=== PATIENT | male | born 1985 | race Caucasian/White ===

== ENCOUNTER 2019-04-27 10:34 | Emergency (ER) | payer MEDICAID, SELFPAY ==
[2019-04-27 10:47] VITALS: BP 146/94; PULSE 96; RESP 20; TEMP 36.7; O2SAT 97
--- NOTE | 2019-04-27 11:07 | W.ED.GENAD ---
Discharge Plan Disposition Patient Disposition: HOME Condition: Good Discharge Details Chief Complaint: Anxiety Clinical Impression: Anxiety Primary Care Provider: Bacilio Crowder ED Provider: Saray Lizarraga Home Meds and New Rx's Prescriptions: New lorazepam [Ativan] 0.5 mg tablet 0.5 mg PO TID PRN (Reason: anxiety) Qty: 4 RF: 0 Discharge Instructions Instructions: Anxiety (ED) Additional Instructions: Encourage water intake. Try to cut back on alcohol. Please continue contacting [facility] regarding your chronic alcohol use. You have an appointment set up for next week with primary care regarding your anxiety. They will also help refer you to psychiatry. Try anxiety breaking techniques as discussed by mental health. Deep breathing exercises. You may use the Ativan as prescribed. Do not take this more than prescribed. Keep this in a safe place. Do not drive will take this medication. Uses only during severe episodes of anxiety. If you develop thoughts of self self-harm, thoughts of harming others or other new/worsening symptoms please seek care urgently once again. Referrals: Bacilio Crowder [Primary Care Provider] - 05/06/19 8:30 am Discharge Data Discharge Date/Time-TO BE ENTERED AT DEPARTURE: 04/27/19 13:33 Medical Decision Making Patient 33-year-old male presents today with chief complaint of anxiety. He reports that he was diagnosed anxiety initially at 16 but is noted that this is exacerbated over the past 7 years. He states that he has become particularly worsened since moving to the area 2 months ago. He has not been any medications in the past 2 years. Anxiety. Has been moving around a number of times recently and has not established as of yet with a psychiatrist. Has an upcoming appointment with Dr. rankin but this is not until May to establish care. States that now he is having difficulty sleeping. States that this is affecting his ability to perform his activities of daily living and go to work. 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 He denies any thoughts of self-harm. No thoughts of harming others. No previous suicide attempts. Patient does appear visibly anxious. Plan to give 1 mg of p.o. Ativan and will consult with emergency services. Mental health is here to evaluate the patient. He reports that he saw the patient yesterday in the [facility] after acute alcohol intoxication. He also reports the patient may have missed his appointment this morning with his radiological defense officer which may also be exacerbating his anxiety. This is not information that was given for relief from the patient. He did not endorse any alcohol or drug use when I initially questioned the patient. Mental health evaluated patient feel that he is safe for discharge. They are trying to move up his time of them, will be more involved in his care. He also discussed possibly getting the patient to [facility] to help with his alcohol abuse. I did question the patient on the alcohol and he reports that he primarily drinks when he is feeling very anxious. Endorses presently 5 drinks daily. We did discuss that this may be exacerbating some of his symptoms and I encouraged alcohol cessation. We did discuss [facility] as he had with mental health. At this point, the patient does not feel that this is necessary and rather focus on the treatment of his anxiety. He feels much improved after the p.o. Ativan. Patient does seem reliable and is able to contract to not use Ativan when drinking. He does not drive typically. I will prescribe a short course of Ativan. Prescribed 0.5 mg Ativan tablets to be used 3 times daily as needed. Prescribed 4 tablets. Our pharmacist critical care was able to move up the patient's upcoming appointment with primary care next week to be able to discuss his anxiety further. He reports that he has been on medication for his anxiety historically and responded very well to this. He was given strict return precautions. Is not an imminent threat to himself or others. I feel that he is safe for discharge as well. Is already established with [facility] human services. All of his questions and concerns were addressed and he is in agreement with this plan. HPI General Mode of arrival: ambulatory. Date/Time Provider Initiated Documentation: 04/27/19 11:06. Limitations to Documentation: no limitations. Information obtained by: patient and RN notes reviewed. History of Present Illness 33 year old M presents to the emergency department with the chief complaint of anxiety, described as severe and similar to prior episodes, Patient started experiencing this year(s) (states worse in recent months) and it has been constant (worse when at work). No relieving factors improve symptom(s), Other factors that worsen symptoms (situational) . Patient notes denies confusion, chest pain, fever/chills, headaches and loss of appetite. Patient did receive the following treatments prior to arrival, none Related Data Home Medications Medication Instructions Recorded Confirmed lorazepam [Ativan] 0.5 mg PO TID PRN #4 tab 04/27/19 Previous Rx's Medication Instructions Recorded lorazepam [Ativan] 0.5 mg PO TID PRN #4 tab 04/27/19 General Stated Complaint: Anxiety ZAHIRA: 3 Review of Systems Constitutional Constitutional: Reports as per HPI, Denies chills, Denies fatigue, Denies fever(s), Denies headache(s) and Denies weakness Eyes Eyes: Denies change in vision ENT Ears, Nose, Mouth, and Throat: Denies headache(s) Cardiovascular Cardiovascular: Reports as per HPI, Denies chest pain, Denies lightheadedness, Denies dyspnea and Denies dyspnea on exertion Respiratory Respiratory: Reports as per HPI, Denies cough, Denies dyspnea and Denies dyspnea on exertion Gastrointestinal Gastrointestinal: Reports as per HPI, Denies abdominal pain, Denies change in bowel habits, Denies nausea and Denies vomiting Genitourinary Genitourinary: Denies system reviewed and no additional complaints, except as docu (denies any change in urinary habits) Musculoskeletal Musculoskeletal: Denies abnormal gait Integumentary/Breasts Skin/Breast: Reports as per HPI and Denies rash Neurologic Neurologic: Denies abnormal movements, Denies abnormal speech, Denies abnormal gait, Denies confusion, Denies headache(s), Denies paresthesias and Denies weakness Psychiatric Psychiatric: Reports abnormal sleep pattern (reports diminished sleep secondary to anxiety), Reports anxiety, Denies change in appetite, Denies confusion, Denies depression, Denies auditory hallucinations, Denies hopelessness, Reports panic attacks, Denies hallucinations, Denies homicidal ideation and Denies suicidal ideation Endocrine Endocrine: Denies fatigue Exam Const General: cooperative, healthy appearing, comfortable, no acute distress, well developed and well groomed Nutritional Appearance: average body habitus and well nourished Orientation: alert and awake Eyes General: appearance normal, both eyes and all related structures Resp Effort & Inspection: normal respiratory effort, able to speak in complete sentences and no respiratory distress Auscultation: clear to auscultation bilaterally, no rales, no rhonchi and no wheezes Cardio Rate: regular rate Rhythm: regular rhythm Heart Sounds: S1 normal and S2 normal Skin General skin exam: no rashes or lesions noted Trauma: no lacerations or abrasions Neuro General: alert and awake Cognition: normal cognition Speech: speech normal Gait: normal gait Course Vital Signs Vital signs: Vital Signs Temperature 36.7 C 04/27/19 10:47 Pulse 96 H 04/27/19 10:47 Respiratory Rate 20 04/27/19 10:47 Blood Pressure 146/94 H 04/27/19 10:47 Pulse Oximetry 97 04/27/19 10:47 Temperature 36.7 C 04/27/19 10:47 Temperature Source Skin 04/27/19 10:47 Pulse 96 H 04/27/19 10:47 Respiratory Rate 20 04/27/19 10:47 Blood Pressure 146/94 H 04/27/19 10:47 Blood Pressure Position Sitting 04/27/19 10:47 Pulse Oximetry 97 04/27/19 10:47 Oxygen Delivery Method Room Air 04/27/19 10:47 Oxygen Flow Rate 0 04/27/19 10:47 Pain Level 0 04/27/19 10:47
[2019-04-27] MEDS: LORazepam 1 MG TAB PO (11:13)
--- NOTE | 2019-04-27 11:14 | NUR.NOTE ---
patient medicated per MD order, NEVERAS paged and patient to [facility] Nursing Note:
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
--- NOTE | 2019-04-27 18:49 | PDOC.ERCMPRO ---
- If Service Date Differs Date of service: 04/27/19 Time of Service: 18:49 Care Management Progress Note CM responded to a request from ED provider to assist with obtaining a PCP appointment for a patient in need. Jamal is new to the area and was unable to obtain an appointment with Dr. Crowder until May. He is extremely anxious and needed to be seen sooner. CM contacted [facility] and was able to get an appointment for Jamal on 05/06/19 with Bing Bergeron. He will likely be referred to the psychiatrist in the practice as well as he has been unable to establish with one in this area yet.
== END 2019-04-27 13:33 | disposition home or self-care (01) ==
PROVIDERS: Emergency Provider Physician Assistant; PCP Family Medicine
DX: F41.9 Anxiety disorder, unspecified (principal)
CPT/HCPCS: 99284; 99283

== ENCOUNTER 2019-05-26 22:04 | Emergency (ER) | payer MEDICAID, SELFPAY ==
--- NOTE | 2019-05-26 22:10 | NUR.NOTE ---
Nursing Note: Went to triage patient, patient was not in waiting room. Per javascript front end developer he had dropped his baggage and gone out to smoke a cigarette after checking into the ER.
[2019-05-26 22:13] VITALS: BP 150/103; PULSE 104; RESP 20; TEMP 36.6; O2SAT 97
[2019-05-26 22:15] VITALS: BP 135/94
--- NOTE | 2019-05-26 22:31 | NUR.NOTE ---
Nursing Note: Patient agitated throwing his clothes while getting undressed and highly agitated that the doctor has not seen him yet when the PA attempted to go see him he excused her from the room to take a phone call.
--- NOTE | 2019-05-26 22:49 | NUR.NOTE ---
Addendum entered and electronically signed by Abida Craig 05/26/19 23:02: Patient redirected and informed that he needs to control his anger and behaviors. Saying bizarre statements, irritable. Stating that he is better off and that everyone is to me. Pt states he is going through a very difficult break up as well right now and that is why he is saying the things I am. Original Note: Nursing Note: Patient with provider at this time. Patient increasing in agitation
--- NOTE | 2019-05-26 22:49 | W.ED.GENAD ---
Discharge Plan Disposition Patient Disposition: OTHER Condition: Good Discharge Details Chief Complaint: PsychEval Clinical Impression: Adjustment disorder, Alcohol intoxication Primary Care Provider: Bacilio Crowder ED Provider: Rodrigo Thompson Home Meds and New Rx's Prescriptions: No Action No Known Home Meds RF: 0 Discharge Instructions Additional Instructions: [facility] referral will be made in morning and you should hear from them. Contact PCP for appointment to discuss antidepressants. Consider alcohol counseling. Return to ED for unsafe feelings, wanting to harm self, other concerns. Referrals: [facility] [Provider Group] Bacilio Crowder [Primary Care Provider] - Discharge Data Discharge Date/Time-TO BE ENTERED AT DEPARTURE: 05/27/19 01:45 Medical Decision Making <GERARD Mcgovern - Last Filed: 05/27/19 09:51> Patient is a 33 year old male, H signficiant for anxiety, with c/c of suicidal ideation. He was seen by myself on 04/27/19 for anxiety. He states that since that time his anxiety has continued to increase. Reports poor sleeping habits, reports that dreams keep him awake at night. States that he no longer has a place to stay, sounds very financially stressed. [facility]. Is frustrated that peopel addicted to drugs were able to get a place and he was not, this greatly seems to escalate him. He states that he has attempted suicide historically, reports in 2017 he tried to drink ETOH to the point of suicidal attempt. He continues to drink 6-8 beers daily, last drank a few hours ago. States that recently he has begun having increased anxiety and depression. Plans to jump off of a bridge into cold water. On exam, patient appears nontoxic. He is anxious. Physical exam normal. Patient has an anxious and angry affect. Will consult with mental health and request evaluation. Patient in paper clothes. Safety plan set up. Basic labs will be sent. Patient agrees to admission at this time, feels that I dont have another option at this point. CPSO has been ordered. As patient drinks regularly, placed patient on CIWA protocol. At the end of my shift, care was transitioned to Dr. Thompson with labs and Evaluation by mental health pending. patient remains voluntary. <Rodrigo Thompson MD - Last Filed: 05/27/19 01:34> Patient is medically cleared. His alcohol level was 148 at 23:00. LFT a little elevated likely due to daily drinking which he admits to. Patient has been seen and evaluated by mental health. He is not endorsing being suicidal currently. Apparently, more an issue with trying to have a place to sleep tonight. We will have him transported to [facility] by the [facility]. He will contact PCP for appointment to discuss antidepressants. [facility] referral will be placed in morning and they will reach out to him. He is future oriented talking about how he needs to work in the morning. He is discharged to the [facility]. Medical Records Medical records reviewed: Yes I reviewed the patient's medical records. Lab Data Lab results reviewed: Yes I reviewed the patient's lab results. HPI <GERARD Mcgovern - Last Filed: 05/27/19 09:51> General Mode of arrival: ambulatory. Date/Time Provider Initiated Documentation: 05/26/19 22:05. Limitations to Documentation: no limitations. Information obtained by: patient and RN notes reviewed. History of Present Illness 33 year old M presents to the emergency department with the chief complaint of suicidal ideation, described as severe and similar to prior episodes (has attempted suicide historically), Patient started experiencing this day(s) and it has been constant. No relieving factors improve symptom(s), No exacerbating factors reported . Patient notes no other symptoms.. Patient did receive the following treatments prior to arrival, none Related Data Home Medications Medication Instructions Recorded Confirmed Unknown [No Known Home Meds] 05/26/19 05/26/19 Allergies Allergy/AdvReac Type Severity Reaction Status Date / Time No Known Allergies Allergy Unverified 05/26/19 22:15 General Stated Complaint: PsychEval ZAHIRA: 2 Review of Systems <GERARD Mcgovern - Last Filed: 05/27/19 09:51> Constitutional Constitutional: Reports as per HPI, Denies chills, Denies fatigue, Denies fever(s), Denies headache(s) and Denies weakness Eyes Eyes: Denies change in vision ENT Ears, Nose, Mouth, and Throat: Denies headache(s) Cardiovascular Cardiovascular: Reports as per HPI, Denies chest pain, Denies lightheadedness, Denies dyspnea and Denies dyspnea on exertion Respiratory Respiratory: Reports as per HPI, Denies cough, Denies dyspnea and Denies dyspnea on exertion Gastrointestinal Gastrointestinal: Reports as per HPI, Denies abdominal pain, Denies change in bowel habits, Denies nausea and Denies vomiting Genitourinary Genitourinary: Denies system reviewed and no additional complaints, except as docu (denies any change in urinary habits) Musculoskeletal Musculoskeletal: Denies abnormal gait Integumentary/Breasts Skin/Breast: Reports as per HPI and Denies rash Neurologic Neurologic: Denies abnormal movements, Denies abnormal speech, Denies abnormal gait, Denies confusion, Denies headache(s), Denies paresthesias and Denies weakness Psychiatric Psychiatric: Reports as per HPI, Reports abnormal sleep pattern, Reports anxiety, Denies confusion, Denies depression, Denies auditory hallucinations, Reports hopelessness, Reports irritability, Reports mood swings, Reports panic attacks, Denies visual hallucinations, Denies hallucinations, Denies homicidal ideation and Reports suicidal ideation Endocrine Endocrine: Denies fatigue PFSH <GERARD Mcgovern - Last Filed: 05/27/19 09:51> Social History Smoking/Tobacco Use Status: Current every day Alcohol Intake: current Drug use: Rarely Substance use type: marijuana Do you feel safe at home: Yes Do you feel safe in your relationship?: Yes Exam <GERARD Mcgovern - Last Filed: 05/27/19 09:51> Const General: cooperative, healthy appearing, comfortable, no acute distress, well developed and well groomed Nutritional Appearance: average body habitus and well nourished Orientation: alert and awake Eyes General: appearance normal, both eyes and all related structures Resp Effort & Inspection: normal respiratory effort, able to speak in complete sentences and no respiratory distress Auscultation: clear to auscultation bilaterally, no rales, no rhonchi and no wheezes Cardio Rate: regular rate Rhythm: regular rhythm Heart Sounds: S1 normal and S2 normal Skin General skin exam: no rashes or lesions noted Trauma: no lacerations or abrasions Neuro General: alert and awake Cognition: normal cognition Speech: speech normal Gait: normal gait Psych Appearance: grossly normal and well kempt Mental Status: mental status grossly normal Speech and Movement: speech and movement normal Mood: congruent mood Affect: anxious affect Attitude: cooperative Thought Process: perseverating Thought Content: suicidality Insight: limited Judgment: limited Course <GERARD Mcgovern - Last Filed: 05/27/19 09:51> Vital Signs Vital signs: Vital Signs Temperature 36.6 C 05/26/19 22:13 Pulse 104 H 05/26/19 22:13 Respiratory Rate 20 05/26/19 22:13 Blood Pressure 150/103 H 05/26/19 22:13 Pulse Oximetry 97 05/26/19 22:13 Temperature 36.6 C 05/26/19 22:13 Temperature Source Temporal Artery Scan 05/26/19 22:13 Pulse 104 H 05/26/19 22:13 Respiratory Rate 05/26/19 22:13 Respiratory Effort Non-Labored 05/26/19 22:15 Blood Pressure 135/94 H 05/26/19 22:15 Blood Pressure Position Sitting 05/26/19 22:13 Pulse Oximetry 97 05/26/19 22:13 Oxygen Delivery Method Room Air 05/26/19 22:13 Oxygen Flow Rate 0 05/26/19 22:13 Pain Level 3 05/26/19 22:13 Sign Out <GERARD Mcgovern - Last Filed: 05/27/19 09:51> Sign Out Data: Sign Out Comment: Care transitioned to Dr. Thompson. Patient is actively suicidal with a plan. Mental health has been called in. CPSO ordered. [facility] protocol. Labs pending. Last updated by Saray Lizarraga PA at 05/26/19 23:43
--- NOTE | 2019-05-26 23:12 | PDOC.CMSAFED ---
- If Service Date Differs Date of service: 05/26/19 Time of Service: 23:12 Care Management Safety Plan Jamal is a 33 year old male who presents to the ED due to anxiety and suicidal ideation with a plan of jumping off of the [address] bridge into the frigid water. Jamal reports one suicide attempt in 2017 when he attempted to drink himself to . He admits that alcohol is an issue for him and states he drinks approximately 6 to 8 beers per day. Jamal also voices frustration with his [facility]. CM will facilitate an interdepartmental huddle with [facility] screener for safety planning consideration once Jamal is medically cleared and has been assessed by [facility] screener. CM will subsequently meet with patient to review [facility] policy and safety plan, establish individual wishes for treatment, and maintain patient rights. In the interim; please note safety plan below to guide patient care while awaiting further assessment in the ED. SAFETY PLAN: 1. Will remain on suicide precautions and in paper clothes. 2. Will remain in room under direct supervision of one-on-one staff at all times provided by CPSO, SUPER[employer]ENDENT [employer]LL[employer], SUPERVISOR CURED [employer]ATS supervisor lending activities. 3. May have paper cups, plates, finger foods as well as a cardboard spoon with which to eat meals. 4. Follow [facility] Management of the Admitted Behavioral Health Patient policy. 5. Comfort bath system only. 6. No personal belongings 7. No visitors. 8. No phone privileges at this time. 9. Bathroom privileges: Patient may use the bathroom in the ED with staff escort. 10. Due to VOLUNTARY status, if patient wishes to leave [facility], care management and the [facility] refractory worker ([phone]) must be contacted to re-evaluate patient prior to patient exiting the building. If deemed appropriate for inpatient psychiatric care, safety plan will be established with patient, and care team, to adhere to patient goals, identify restrictions based on behavioral status, address nutrition, and determine allowed personal belongings, tools for hygiene and personal care. As well plan will determine level of activity including ambulation, level of supervision, visitors, and determine privileges based on level of acuity, behaviors and level of engagement by patient.
[2019-05-26 23:18] LABS: Abs Immature Grans 0.02 k/cumm (0.0-0.09); Absolute Basophil Count 0.06 k/cumm (0.0-0.2); Absolute Eosinophil Count 0.15 k/cumm (0.0-0.7); Absolute Monocyte Count 1.02 k/cumm (0.11-0.7); Absolute Neutrophil Count 4.29 k/cumm (1.2-6.7); Basophils % 0.8; Eosinophils % 1.9; HGB 15.3 g/dL (13.5-17.5); Immature Grans % 0.3 %; Lymphocytes % 30.2; Mean Corp. HGB Concentration 34.8 g/dL (32.0-36.0); Mean Corpuscular Hemoglobin 30.5 pg (27.0-33.0); Mean Corpuscular Volume 87.6 fL (80-95); Monocytes % 12.8; Platelet Count 254 x1000/uL (130-400); RBC 5.02 m/cumm (4.50-6.00); RBC Distribution Width 14.3 % (11.8-14.1); White Blood Cell Count 7.94 k/cumm (4.4-10.8)
[2019-05-26 23:33] LABS: Acetaminophen < 2 ug/mL (10-30); Salicylate < 2.8 mg/dL (2.8-20.0)
[2019-05-26 23:41] LABS: ALT 204 U/L (16-63); AST 186 U/L (15-37); Albumin 4.1 g/dL (3.4-5.0); Alkaline Phosphatase 77 U/L (46-116); Anion Gap 11.2 mmol/L (3-11); BUN 9 mg/dL (7-18); Bilirubin, Total 0.7 mg/dL (0.2-1.0); CO2 27.8 mmol/L (21.0-32.0); CREATININE 0.74 mg/dL (0.70-1.30); Calcium 8.5 mg/dL (8.5-10.1); Chloride 102 mmol/L (98-107); ETHANOL BLOOD 148.3 mg/dL (<3); Glucose 85 mg/dL (74-106); Potassium 3.4 mmol/L (3.5-5.1); Sodium 141 mmol/L (136-145); TSH 1.05 uIU/mL (0.36-3.74)
[2019-05-27 01:15] LABS: Bilirubin Negative (Negative); Blood Negative (Negative); Clarity Clear (Clear); Glucose Negative (Negative); Ketones Negative (Negative); Leukocyte Esterase Negative (Negative); Nitrite Negative (Negative); Urobilinogen 0.2 EU/dL (Up TO 0.2)
[2019-05-27 01:25] LABS: *AMPHETAMINES SCREEN URINE Negative (Negative); *BARBITURATES SCREEN URINE Negative (Negative); *BENZODIAZEPINES SCREEN URINE Negative (Negative); Cannabinoids THC Negative (Negative); Cocaine Screen,Urine Negative (Negative); METHADONE URINE SCREEN Negative (Negative); OPIATES URINE SCREEN Negative (Negative)
[2019-05-27 01:26] LABS: Tricyclic Antidepressants Negative (Negative)
--- NOTE | 2019-05-27 01:28 | PDOC.MHCN ---
Date of service: 05/27/19 Time of Service: 01:28 Mental Health Crisis Note Presenting Issue How did you arrive at the ED and why did you come: Zurdo came to the ER on his own accord due to SI. Precipitating Factors J told ER provider he was SI and wanted to jump off the bridge into the freezing river. When this clinician arrived he said he had thoughts of cutting his arms with a razor. This clinician inquired about intentions and he denied any. He rated his SI on a scale of 0-10 at a 5. Disposition BEHAVIOR: Zurdo is belligerent and verbally aggressive. He is behaving in a defiant manner and this was addressed with him. He complied minimally after being addressed. EYE CONTACT: Zurdo does not make eye contact throughout the assessment. MOOD: Zurdo reports that he is depressed and stressed. It seems that he is manipulating the ER for a place to stay as he was too late to get to the [facility] and the other place he was staying, he reports that his friend is a devote [employer] and says that he must convert and this is something he does not believe in. AFFECT: Zurdo's affect is stoic and flat other than angry. APPETITE: Zurdo reports his appetite is up and down. SLEEP(trouble falling/staying asleep: J reports his sleep is up and down. Plan This clinician will make a referral for case management to assist him in navigation of services. J stated that he will outreach to his PCP tomorrow to set up an appointment to discuss medication treatment. Provisional Diagnosis Adjustment d/o with disturbance of mood. Signature Clinician's Name/Title: Kareen Saldana MS, [facility] Emergency Services Clinician
--- NOTE | 2019-05-27 06:06 | NUR.NOTE ---
REFERRAL FAXED TO PCP DR. MAY FOR FOLLOW UP CARE Nursing Note:
--- NOTE | 2019-05-27 08:24 | NUR.NOTE ---
Nursing Note: After the patient's visit last night he left his W2's in the ED. I called the patient and he stated that he could print out new ones and that he wanted me to shred these. Fatimah Mccracken.
== END 2019-05-27 01:45 | disposition other institution (70) ==
PROVIDERS: Physician Assistant; Emergency Provider Emergency Medicine; PCP Family Medicine
DX: F43.20 Adjustment disorder, unspecified (principal); F10.129 Alcohol abuse with intoxication, unspecified; Z59.0 Homelessness
CPT/HCPCS: 80053; 80307; 99285; 80320; 80329; 81003; 84443; 85025

== ENCOUNTER 2019-06-06 17:09 | Emergency (ER) | payer MEDICAID, SELFPAY ==
[2019-06-06 17:20] VITALS: BP 147/99; PULSE 114; RESP 16; TEMP 36.7; O2SAT 98
[2019-06-06 17:32] VITALS: RESP 16
--- NOTE | 2019-06-06 17:44 | W.ED.GENAD ---
Discharge Plan Disposition Patient Disposition: HOME Condition: Stable Discharge Details Chief Complaint: Anxiety Clinical Impression: Syncope, Anxiety Primary Care Provider: Bacilio Crowder ED Provider: Marti Staton Home Meds and New Rx's Prescriptions: New hydroxyzine pamoate [Vistaril] 25 mg capsule 25 mg PO BID MDD 50 mg PRN (Reason: anxiety) Qty: 7 RF: 0 Discharge Instructions Instructions: Syncope (ED), Anxiety (ED) Additional Instructions: Follow up with primary care provider in 3-5 days. Return to ED sooner if any worsening or concerns. Increase oral fluids. Please take Tylenol or Ibuprofen with food every 4-6 hours as needed for pain and swelling. Referrals: Bacilio Crowder [Primary Care Provider] - Medical Decision Making 34-year-old male presents with syncopal episode earlier today. Patient states he was on the phone getting ready for work when he had an anxiety attack and fell onto his bed. He denies headache, neck pain or back pain. He does describe sharp pinpoint-like chest pains to his left anterior chest wall. No shortness of breath. He does have a history of anxiety, upon exam he is talking in flight of ideas. Jumps from subject to subject. At this time he is calm and cooperative he believes it is my blood pressure. On exam he is tachycardic alert and oriented lungs are clear to auscultation bilaterally. Basic labs and troponin obtained including magnesium. IV normal saline 1 L ordered. EKG shows sinus tachycardia rate of 107 PA interval 128 QT/QTc is [address] elevation or depression no T wave inversions. Patient reevaluation: Patient states he feels better after 1 L of normal saline, heart rate is down to 97, he is not complaining of chest pains any longer. Discussed hydroxyzine with patient given 1 tablet in department for anxiety. Offered addictions recovery specialist patient refused at this time. He does have a PCP appointment on the which he intends to keep. Discussed home care with patient and strict return instructions verbalized understanding. Lab Data Lab results reviewed: Yes I reviewed the patient's lab results. HPI General Mode of arrival: ambulatory. Date/Time Provider Initiated Documentation: 06/06/19 17:19. Limitations to Documentation: no limitations. Information obtained by: patient. HPI Narrative: 34-year-old male presents to the ED with syncopal episode. Patient states he was on the phone getting ready for work when he started feeling anxious and then had a syncopal episode landing on his bed. He denies hitting his head or neck. He reports also associated with sharp pinpoint chest pains to his left anterior chest wall. He also states I think it is my blood pressure. He does have a history of anxiety and has been seen in the department before for SI. He reports drinking a beer and a half or 2 beers 2 hours ago, he is a smoker. Related Data Home Medications Medication Instructions Recorded Confirmed hydroxyzine pamoate [Vistaril] 25 mg PO BID PRN #7 cap MDD 50 mg 06/06/19 Previous Rx's Medication Instructions Recorded hydroxyzine pamoate [Vistaril] 25 mg PO BID PRN #7 cap MDD 50 mg 06/06/19 Allergies Allergy/AdvReac Type Severity Reaction Status Date / Time No Known Allergies Allergy Unverified 06/06/19 17:24 General Stated Complaint: Anxiety ZAHIRA: 3 Review of Systems Narrative: Constitutional: Negative for weight loss, alert and oriented, well groomed, normal body habitus, appears comfortable. HEENT: Denies, nasal discharge, sore throat, trouble swallowing. Chest: Denies , irregular rhythm,. Positive pinpoint sharp chest pains Respiratory: Denies Shortness of breath, cough, hemoptysis. GI: Denies abdominal pain, nausea, vomiting, diarrhea, constipation. : Denies dysuria, hematuria, flank pain, rectal bleeding. Neuro: Denies weakness, headache or facial numbness. Positive syncopal episode, reports blurry vision. Hematologic: Denies easy bruising, intolerance to heat or cold, hair loss. Psych: Has a history of anxiety SI alcohol abuse [facility] Social History Smoking/Tobacco Use Status: Current every day Tobacco Type: cigarettes Smoking packs per day: 0.5 Smoking cigarettes per day: 10.0 Alcohol Intake: current Alcohol Intake frequency: 0-2 drinks per day Alcohol type: beer Drug use: Rarely Substance use type: marijuana Do you feel safe at home: Yes Do you feel safe in your relationship?: Yes Exam Narrative Exam Narrative: Constitutional: Allert and oriented x3. Appears stated age. Normal body habitus. Head: Normocephalic, no trauma. Eyes: Pupils PERRLA, Red reflex noted, EOM's intact. Eyelids symmetrical withour lesions, discharge, or swelling. ENT: Bilateral TM's WNL, External ear normal to inspection, no mastoid TTP, swelling, or erythema, Nasal turbinates WNL, no nasal discharge. Normal dentition, Posterior pharynx WNL, no exudate. Chest: Tachycardia, normal S1, S2, distal pulses intact. Resp: Lungs clear to auscultation bilaterally, no wheezes, rales, or rhonchi. Musculoskeletal: Normal gait, 5/5 strength to all four extremities. Skin: No suspicious rashes or lesions. Capillary refill ?2 sec. Neurologic: Cranial nerves II-XII intact. Alert and oriented x 3. DTR's intact. Hematologic/Lymphatic: No ecchymosis, no lymphadenopathy. psych: Patient has flight of ideas, he is alert and oriented x3, he does appear anxious he is cooperative at this time. He denies suicidal or homicidal ideation at this time. Course Vital Signs Vital signs: Vital Signs Temperature 36.7 C 06/06/19 17:20 Pulse 114 H 06/06/19 17:20 Respiratory Rate 16 06/06/19 17:20 Blood Pressure 147/99 H 06/06/19 17:20 Pulse Oximetry 98 06/06/19 17:20 Temperature 36.7 C 06/06/19 17:20 Temperature Source Skin 06/06/19 17:20 Pulse 114 H 06/06/19 17:20 Respiratory Rate 16 06/06/19 17:32 Respiratory Effort Non-Labored 06/06/19 17:32 Respiratory Depth Normal 06/06/19 17:32 Respiratory Pattern Normal 06/06/19 17:32 Blood Pressure 147/99 H 06/06/19 17:20 Blood Pressure Position Sitting 06/06/19 17:20 Pulse Oximetry 98 06/06/19 17:20 Oxygen Delivery Method Room Air 06/06/19 17:20 Oxygen Flow Rate 0 06/06/19 17:20 Pain Level 0 06/06/19 17:20
[2019-06-06 18:03] LABS: Abs Immature Grans 0.01 k/cumm (0.0-0.09); Absolute Basophil Count 0.07 k/cumm (0.0-0.2); Absolute Eosinophil Count 0.06 k/cumm (0.0-0.7); Absolute Lymphocyte Count 1.99 k/cumm (1.2-3.4); Absolute Monocyte Count 0.65 k/cumm (0.11-0.7); Absolute Neutrophil Count 3.46 k/cumm (1.2-6.7); Basophils % 1.1; HCT 46.9 % (40.0-50.0); HGB 16.5 g/dL (13.5-17.5); Immature Grans % 0.2 %; Lymphocytes % 31.9; Mean Corp. HGB Concentration 35.2 g/dL (32.0-36.0); Mean Corpuscular Hemoglobin 30.5 pg (27.0-33.0); Mean Corpuscular Volume 86.7 fL (80-95); Monocytes % 10.4; Neutrophils % 55.4; Platelet Count 245 x1000/uL (130-400); RBC 5.41 m/cumm (4.50-6.00); RBC Distribution Width 14.3 % (11.8-14.1); White Blood Cell Count 6.24 k/cumm (4.4-10.8)
[2019-06-06] MEDS: Normal Saline 1,000 ML 1000 ML IV (18:07)
[2019-06-06] MEDS: Normal Saline Flush 10 ML SYR IVP (18:08)
[2019-06-06 18:18] LABS: ALT 182 U/L (16-63); AST 210 U/L (15-37); Albumin 4.1 g/dL (3.4-5.0); Alkaline Phosphatase 69 U/L (46-116); Anion Gap 10.9 mmol/L (3-11); BUN 6 mg/dL (7-18); Bilirubin, Total 0.8 mg/dL (0.2-1.0); CO2 27.1 mmol/L (21.0-32.0); CREATININE 0.74 mg/dL (0.70-1.30); Calcium 8.2 mg/dL (8.5-10.1); Chloride 104 mmol/L (98-107); Glucose 129 mg/dL (74-106); Magnesium 2.2 mg/dL (1.8-2.4); Potassium 3.7 mmol/L (3.5-5.1); Sodium 142 mmol/L (136-145)
[2019-06-06 18:19] LABS: *AMPHETAMINES SCREEN URINE Negative (Negative); *BARBITURATES SCREEN URINE Negative (Negative); *BENZODIAZEPINES SCREEN URINE Negative (Negative); Cannabinoids THC Negative (Negative); Cocaine Screen,Urine Negative (Negative); METHADONE URINE SCREEN Negative (Negative); OPIATES URINE SCREEN Negative (Negative)
[2019-06-06 18:27] LABS: Tricyclic Antidepressants Negative (Negative)
[2019-06-06 18:27] LABS: Troponin I < 0.05 ng/Ml (<0.06)
[2019-06-06 19:13] VITALS: BP 115/79; PULSE 89; RESP 16; O2SAT 96
[2019-06-06] MEDS: hydrOXYzine HCL 25 MG TAB PO (19:50)
== END 2019-06-06 19:50 | disposition home or self-care (01) ==
PROVIDERS: Emergency Provider Registered Nurse Emergency; PCP Family Medicine
DX: R55 Syncope and collapse (principal); F41.9 Anxiety disorder, unspecified; R07.81 Pleurodynia
CPT/HCPCS: 36415; 80053; 80307; 93005; 96360; 99284; 83735; 84484; 85025; 93010

== ENCOUNTER 2019-07-04 01:57 | Emergency (ER) | payer MEDICAID, SELFPAY ==
[2019-07-04 01:56] VITALS: BP 137/109; PULSE 102; RESP 18; TEMP 36.7; O2SAT 97
--- NOTE | 2019-07-04 03:05 | ED.GENADUL_ITS ---
Discharge Plan Disposition Patient Disposition: HOME Condition: Stable Discharge Details Chief Complaint: Anxiety Clinical Impression: Anxiety Primary Care Provider: Bacilio Trinh ED Provider: Gibson Ji Home Meds and New Rx's Prescriptions: Continued hydroxyzine pamoate [Vistaril] 25 mg capsule 25 mg PO BID MDD 50 mg PRN (Reason: anxiety) Qty: 7 RF: 0 Discharge Instructions Instructions: Panic Attack (ED) Additional Instructions: Follow up with Dr. Trinh within 1 week try to limit alcohol use to 1-2 drinks a day if you have worsening shortness of breath, persistent vomit or severe pain return to the emergency department Medical Decision Making 34 yo male with history of anxiety and alcohol abuse comes in with ems after he started to feel anxious hyperventilated hand tingling. Denies any drug use but over the course of the day yesterday had 8 beers last being at 10pm. Denies si/hi. Is caox4 on exam and clinically sober with stable gait and clear speech. States he feels better now and only feels mild anxiety. He has not seen his primary care provider for his anxiety per patient. He has clear lungs, no motor or sensation deficits, soft abdomen, normal tm's and oropharynx. Symptoms consistent with a panic attack that has resolved. Discussed he should see his pcp and discuss daily med for his anxiety. I did advise that I do sometimes prescribe ativan prn but given his frequent alcohol intake it is not safe to take this and did not feel comfortable prescribing this. Will d/c, advised f/u with pcp and [facility], return precautions given Differential Diagnosis Differential Diagnosis: anxiety, alcohol abuse, panic attack HPI General Mode of arrival: ambulatory . Date/Time Provider Initiated Documentation: 07/04/19 03:05 . Limitations to Documentation: no limitations . Information obtained by: patient . History of Present Illness 34 year old M presents to the emergency department with the chief complaint of anxiety, Patient started experiencing this month(s) (3) and it has been intermittent. No relieving factors improve symptom(s), No exacerbating factors reported . Patient did receive the following treatments prior to arrival, none Related Data Home Medications Medication Instructions Recorded Confirmed hydroxyzine pamoate [Vistaril] 25 mg PO BID PRN #7 cap MDD 50 mg 06/06/19 Previous Rx's Medication Instructions Recorded hydroxyzine pamoate [Vistaril] 25 mg PO BID PRN #7 cap MDD 50 mg 06/06/19 Allergies Allergy/AdvReac Type Severity Reaction Status Date / Time No Known Allergies Allergy Unverified 06/06/19 17:24 General Stated Complaint: Anxiety ZAHIRA: 3 Review of Systems All systems reviewed & are unremarkable except as noted in HPI and below Constitutional Constitutional: Denies chills, Denies fever(s) and Denies weakness Cardiovascular Cardiovascular: Denies chest pain and Denies dyspnea Respiratory Respiratory: Denies cough and Denies dyspnea Gastrointestinal Gastrointestinal: Denies abdominal pain Musculoskeletal Musculoskeletal: Denies joint swelling Neurologic Neurologic: Denies weakness Psychiatric Psychiatric: Denies depression Allergic/Immunologic Allergic/Immunologic: Denies urticaria [facility] Social History Smoking/Tobacco Use Status: Current every day Tobacco Type: cigarettes Smoking packs per day: 0.5 Smoking cigarettes per day: 10.0 Alcohol Intake: current Alcohol Intake frequency: 0-2 drinks per day Alcohol type: beer Drug use: Rarely Substance use type: marijuana Do you feel safe at home: Yes Do you feel safe in your relationship?: Yes Exam Const General: anxious Orientation: alert HENMT Head: normal to inspection Ears: external ears normal General nose exam: external nose normal Mouth: moist mucous membranes Eyes General: appearance normal, both eyes and all related structures Neck Neck: normal visual inspection Resp Effort & Inspection: normal respiratory effort and able to speak in complete sentences Cardio Rate: regular rate Skin General skin exam: no rashes or lesions noted Neuro General: alert and oriented x3 Extrem General: normal to inspection Psych Mental Status: mental status grossly normal Course Vital Signs Vital signs: Vital Signs Temperature 36.7 C 07/04/19 01:56 Pulse 102 H 07/04/19 01:56 Respiratory Rate 18 07/04/19 01:56 Blood Pressure 137/109 H 07/04/19 01:56 Pulse Oximetry 97 07/04/19 01:56 Temperature 36.7 C 07/04/19 01:56 Pulse 102 H 07/04/19 01:56 Respiratory Rate 18 07/04/19 01:56 Blood Pressure 137/109 H 07/04/19 01:56 Pulse Oximetry 97 07/04/19 01:56 Oxygen Delivery Method Room Air 07/04/19 01:56 Oxygen Flow Rate 0 07/04/19 01:56
== END 2019-07-04 03:20 | disposition home or self-care (01) ==
LOC: ER 03:23
PROVIDERS: Emergency Provider Emergency Medicine; PCP Family Medicine
DX: F41.0 Panic disorder [episodic paroxysmal anxiety] (principal); F10.10 Alcohol abuse, uncomplicated
CPT/HCPCS: 99283

== ENCOUNTER 2019-07-04 06:04 | Emergency (ER) | payer MEDICAID, SELFPAY ==
[2019-07-04 06:07] VITALS: BP 150/103; PULSE 83; RESP 18; TEMP 36.6; O2SAT 96
--- NOTE | 2019-07-04 06:15 | ED.GENADUL_ITS ---
Discharge Plan Disposition Patient Disposition: HOME Condition: Stable Discharge Details Chief Complaint: Chest Pain Clinical Impression: Anxiety, Palpitations Primary Care Provider: Bacilio Crowder ED Provider: Gibson Ji Home Meds and New Rx's Prescriptions: No Action hydroxyzine pamoate [Vistaril] 25 mg capsule 25 mg PO BID MDD 50 mg PRN (Reason: anxiety) Qty: 7 RF: 0 Discharge Instructions Instructions: Palpitations (ED) Additional Instructions: your ekg was normal follow up with your primary care provider within 1 week Discharge Data Discharge Date/Time-TO BE ENTERED AT DEPARTURE: 07/04/19 06:40 Medical Decision Making 34yo male with hx of anxiety comes in feeling his heart racing. Denies fevers, chills, pressure, diaphoresis, vomit. He appears anxious on exam and states his heart rate is racing on exam and heart rate on monitor and ekg is 80 without ischemic findings, no evidence of wpw. The patient states he fels anxious and would like to have ativan. I declined this as he has history of drinking heavily and do not feel it is safe for him to take it. no tearing back pain to suggest dissection. No hypoxia or tachycardia so doubt PE is wells score low and perc negative. Heart score is 0 and do not feel he requires workup for this. Normal lung exam no fevers or cough so doubt pneumonia or ptx. Advised to f/u with pcp and discuss holter monitor, return precautions given Differential Diagnosis Differential Diagnosis: anxiety, palpitations, arrythmia Medical Records Medical records reviewed: Yes I reviewed the patient's medical records. ECG Data Attestation: I personally reviewed and interpreted this ECG (s) as follows: Prior ECG tracings: not available for review Interpretation: sinus rhythm, rate of 82, pr 120, no acute st t wave ischemic findings HPI General Mode of arrival: ambulatory . Date/Time Provider Initiated Documentation: 07/04/19 06:14 . Limitations to Documentation: no limitations . Information obtained by: patient . History of Present Illness 34 year old M presents to the emergency department with the chief complaint of heart racing, described as moderate, No relieving factors improve symptom(s), No exacerbating factors reported . Patient notes no other symptoms.. Related Data Home Medications Medication Instructions Recorded Confirmed hydroxyzine pamoate [Vistaril] 25 mg PO BID PRN #7 cap MDD 50 mg 06/06/19 Previous Rx's Medication Instructions Recorded hydroxyzine pamoate [Vistaril] 25 mg PO BID PRN #7 cap MDD 50 mg 06/06/19 Allergies Allergy/AdvReac Type Severity Reaction Status Date / Time No Known Allergies Allergy Unverified 06/06/19 17:24 General Stated Complaint: Chest Pain ZAHIRA: 2 Review of Systems All systems reviewed & are unremarkable except as noted in HPI and below Constitutional Constitutional: Denies chills, Denies fever(s) and Denies weakness Cardiovascular Cardiovascular: Denies dyspnea Respiratory Respiratory: Denies cough and Denies dyspnea Gastrointestinal Gastrointestinal: Denies abdominal pain and Denies vomiting Musculoskeletal Musculoskeletal: Denies joint swelling Neurologic Neurologic: Denies weakness Psychiatric Psychiatric: Denies depression [facility] Social History Smoking/Tobacco Use Status: Current every day Tobacco Type: cigarettes Smoking packs per day: 0.5 Smoking cigarettes per day: 10.0 Alcohol Intake: current Alcohol Intake frequency: 0-2 drinks per day Alcohol type: beer Drug use: Rarely Substance use type: marijuana Do you feel safe at home: Yes Do you feel safe in your relationship?: Yes Exam Const General: anxious Orientation: alert HENMT Head: normal to inspection Ears: external ears normal General nose exam: external nose normal Mouth: moist mucous membranes Eyes General: appearance normal, both eyes and all related structures Neck Neck: normal visual inspection Resp Effort & Inspection: normal respiratory effort and able to speak in complete sentences Cardio Rate: regular rate Skin General skin exam: no rashes or lesions noted Neuro General: alert and oriented x3 Extrem General: normal to inspection Psych Mental Status: mental status grossly normal Course Vital Signs Vital signs: Vital Signs Temperature 36.6 C 07/04/19 06:07 Pulse 83 07/04/19 06:07 Respiratory Rate 18 07/04/19 06:07 Blood Pressure 150/103 H 07/04/19 06:07 Pulse Oximetry 96 07/04/19 06:07 Temperature 36.6 C 07/04/19 06:07 Temperature Source Temporal Artery Scan 07/04/19 06:07 Pulse 83 07/04/19 06:07 Respiratory Rate 18 07/04/19 06:07 Respiratory Effort 07/04/19 06:10 Respiratory Depth Normal 07/04/19 06:10 Respiratory Pattern Normal 07/04/19 06:10 Blood Pressure 150/103 H 07/04/19 06:07 Pulse Oximetry 96 07/04/19 06:07 Oxygen Delivery Method Room Air 07/04/19 06:07 Oxygen Flow Rate 0 07/04/19 06:07
== END 2019-07-04 06:40 | disposition home or self-care (01) ==
LOC: ER 06:19
PROVIDERS: Emergency Provider Emergency Medicine; PCP Family Medicine
DX: R00.2 Palpitations (principal); F41.0 Panic disorder [episodic paroxysmal anxiety]
CPT/HCPCS: 93005; 99283; 93010